=== PATIENT | male | born 1995 | race American Indian/Alaskan Native ===

== ENCOUNTER 2022-03-29 20:26 | Emergency (ER) | payer SELFPAY ==
--- NOTE | 2022-03-29 22:54 | XRay Report ---
LEFT HAND 3 VIEW(S) INDICATION / CLINICAL INFORMATION: INJURY COMPARISON: None available. FINDINGS: BONES / JOINT(S): No acute fracture or subluxation. SOFT TISSUES: Soft tissue injury along the palmar surface of the index finger at the level of the DIP . No retained radiopaque foreign bodies. ADDITIONAL FINDINGS: None. IMPRESSION: 1. Soft tissue injury index finger DIP as detailed without radiopaque foreign body deposition. No acu te fracture. Signer Name: Nimesh Colorado II, MD Signed: 03/29/2022 10:50 PM Workstation Name: [id number]
[2022-03-30] MEDS ORDERED: cephALEXin 500 MG CAP PO ONE (02:47)
[2022-03-30] MEDS ORDERED: TETANUS,DIPH,PERTUSS(ACELL) VACCINE 0.5 ML SYRINGE IM ONE (02:47)
[2022-03-30] MEDS ORDERED: HYDROcodone/ACETAMINOPHEN 5-325 MG TAB PO ONE (02:49)
--- NOTE | 2022-03-30 02:49 | Emergency Department Report ---
ED Upper Extremity Inj HPI - General Chief Complaint: Extremity Injury, Upper Stated Complaint: SMASHED FINGERS Time Seen by Provider: 03/30/22 02:43 Source: patient Mode of arrival: Ambulatory Limitations: No Limitations - History of Present Illness Initial Comments: Patient is a right-handed machinist wood. Patient states he got his left index finger caught on the roller over compressor belt. Causing a small skin avulsion to left distal index finger at DIP joint. Patient complains of 5/10 pain incident happened 24 hours ago. Bleeding was controlled on scene via direct pressure. There is no obvious deformity. There is no active bleeding at this time. Range of motion remains intact. Current pain 5/10. There is no numbness or tingling. There is no nail damage. Symptoms are exacerbated by palpation and movement. Symptoms are relieved by nothing tried at home. Last tetanus unknown MD Complaint: Injury to:: left - Related Data Previous Rx's Medication Instructions Recorded Last Taken Type cephALEXin [Keflex] 500 mg PO Q8HR 7 Days #21 cap 03/30/22 Unknown Rx traMADoL [Ultram] 50 mg PO Q6HR PRN #12 tablet 03/30/22 Unknown Rx Allergies Allergy/AdvReac Type Severity Reaction Status Date / Time No Known Allergies Allergy Verified 03/29/22 22:13 ED Review of Systems ROS: Stated complaint: SMASHED FINGERS Other details as noted in HPI Constitutional: denies: chills, fever Eyes: denies: eye pain, eye discharge, vision change ENT: denies: ear pain, throat pain Respiratory: denies: cough, shortness of breath, wheezing Cardiovascular: denies: chest pain, palpitations Endocrine: no symptoms reported Gastrointestinal: denies: abdominal pain, nausea, diarrhea Genitourinary: denies: urgency, dysuria Musculoskeletal: other (Left index finger skin tear avulsion at palmar DIP joint) Skin: other (Partial skin avulsion as above). denies: rash, lesions Neurological: denies: headache, weakness, paresthesias Psychiatric: denies: anxiety, depression Hematological/Lymphatic: denies: easy bleeding, easy bruising ED Past Medical Hx - Medications Home Medications: Home Medications Medication Instructions Recorded Confirmed Last Taken Type cephALEXin [Keflex] 500 mg PO Q8HR 7 Days #21 cap 03/30/22 Unknown Rx traMADoL [Ultram] 50 mg PO Q6HR PRN #12 tablet 03/30/22 Unknown Rx ED Physical Exam - General Limitations: No Limitations General appearance: alert, in no apparent distress - Head Head exam: Present: normocephalic, normal inspection - Eye Eye exam: Present: normal appearance, EOMI Pupils: Present: normal accommodation - ENT ENT exam: Present: mucous membranes moist - Neck Neck exam: Present: normal inspection, full ROM. Absent: tenderness - Respiratory Respiratory exam: Present: normal lung sounds bilaterally. Absent: respiratory distress, wheezes, stridor, chest wall tenderness - Cardiovascular Cardiovascular Exam: Present: regular rate, normal rhythm, normal heart sounds - GI/Abdominal GI/Abdominal exam: Present: soft, normal bowel sounds. Absent: distended, tenderness, bruit, hernia - Rectal Rectal exam: Present: deferred - Extremities Exam Extremities exam: Present: full ROM, tenderness (Left distal index 3 mild swelling erythema), normal capillary refill - Expanded Upper Extremity Exam Left Hand Wrist exam: Present: full ROM, tenderness, swelling, abrasion, laceration, ecchymosis, erythema, other. Absent: deformity, crepidus, dislocation, amputation, nail avulsion, subungual hematoma Neuro motor exam: Present: wrist extension intact, thumb opposition intact, thumb IP flexion intact, thumb adduction intact, fingers 2-5 abduction intact Neurosensory exam: Present: radial nerve intact Vascular: Present: normal capillary refill. Absent: vascular compromise - Back Exam Back exam: Present: normal inspection, full ROM. Absent: CVA tenderness (R), CVA tenderness (L) - Neurological Exam Neurological exam: Present: alert, oriented X3, CN II-XII intact, normal gait, reflexes normal. Absent: motor sensory deficit - Expanded Neurological Exam Expanded Patient oriented to: Present: person, place, time Speech: Present: fluid speech Motor strength exam: RUE: 5, LUE: 5 DTR: bicep (R): 1+, bicep (L): 1+, tricep (R): 1+, tricep (L): 1+ Best Eye Response ([place]): (4) open spontaneously Best Motor Response ([place]): (6) obeys commands Best Verbal Response ([place]): (5) oriented [place] Total: 15 - Psychiatric Psychiatric exam: Present: normal affect, normal mood - Skin Skin exam: Present: warm, dry, intact, normal color, erythema, abrasion (Laceration as above), other. Absent: rash ED Course Vital Signs 03/29/22 21:18 Temperature 98.3 F Pulse Rate 117 H Respiratory 18 Rate Blood Pressure 224/128 O2 Sat by Pulse 100 Oximetry - Laceration /Wound Repair Left Distal Palm Finger Wound Location: upper extremity (Left palmar index finger at DIP joint partial skin avulsion. 1 x 1 cm) Wound Explored: clean Irrigated w/ Saline (ccs): 20 Anesthesia: 1% Lidocaine Volume Anesthetic (ccs): 1 (Digital block anesthesia is achieved) Wound Debrided: minimal Layer Closure?: No Sterile Dressing Applied?: Yes (Gauze and Coflex dressing applied patient given care instructions for same.) Progress: Left index finger Partial skin avulsion palmar side at DIP joint. This is a superficial skin tear no nerve tendon or muscle damage. Range of motion remains intact to direct confrontation FINANCIAL PLANNING ADVISOR is less than 3 seconds distal pulses are +2 bilaterally. Anesthesia with 1% lidocaine anesthesia was achieved via digital block left index finger. Wound cleaned Betadine solution. Wound irrigated with 20 cc sterile saline. Sterile dressing applied. Sterile dressing remains intact all bleeding is controlled patient tolerated procedure with minimal distress. Patient given wound care instructions verbalized understanding of same. Patient will follow with primary care doctor in 2 days for wound check. ED Medical Decision Making - Radiology Data Radiology results: report reviewed, image reviewed LEFT HAND 3 VIEW(S) INDICATION / CLINICAL INFORMATION: INJURY COMPARISON: None available. FINDINGS: BONES / JOINT(S): No acute fracture or subluxation. SOFT TISSUES: Soft tissue injury along the palmar surface of the index finger at the level of the DIP. No retained radiopaque foreign bodies. ADDITIONAL FINDINGS: None. IMPRESSION: 1. Soft tissue injury index finger DIP as detailed without radiopaque foreign body deposition. No acute fracture. Signer Name: Geno Colorado II, MD Signed: 03/29/2022 10:50 PM Workstation Name: [id number] Transcribed By: RONY Dictated By: GENO [place]ORAD[place] II, MD Electronically Authenticated By: GENO [place]OR[place] II, MD Signed Date/Time: 03/29/222249 DD/ 48 TD/TT: - Medical Decision Making Skin laceration repair see procedure note above. Patient will be DC'd to home at this time with prescriptions. Patient verbalized agreement and understanding of same. CMS remains intact. Critical care attestation.: If time is entered above; I have spent that time in minutes in the direct care of this critically ill patient, excluding procedure time. ED Disposition Clinical Impression: Finger laceration Qualifiers: Encounter type: initial encounter Finger: index finger Damage to nail status: without damage Foreign body presence: without foreign body Laterality: left Qualified Code(s): S61.211A - Laceration without foreign body of left index finger without damage to nail, initial encounter Disposition: HOME / SELF CARE / HOMELESS Is pt being admited?: No Does the pt Need Aspirin: No Condition: Stable Instructions: Laceration Care, Adult Additional Instructions: Take medications as prescribed, wound care as directed. Follow-up with your doctor in 2 to 3 days. Return to emergency department should symptoms worsen. Prescriptions: cephALEXin [Keflex] 500 mg PO Q8HR 7 Days #21 cap traMADoL [Ultram] 50 mg PO Q6HR PRN #12 tablet PRN Reason: Pain Referrals: DIANNA NGO MD [Staff Physician] - 3-5 Days Forms: Work/School Release Form(ED) Time of Disposition: 03:56
[2022-03-30 04:26] VITALS: BP 158/82
== END 2022-03-30 04:26 | disposition home or self-care (01) ==
LOC: ED 20:26
DX: S61.211A Laceration without foreign body of left index finger without damage to nail, initial encounter (principal); Z79.899 Other long term (current) drug therapy; W22.8XXA Striking against or struck by other objects, initial encounter; Y93.89 Activity, other specified; Y92.89 Other specified places as the place of occurrence of the external cause; Y99.8 Other external cause status
CPT/HCPCS: 90471; 90715; 99282; 99283